=== PATIENT | male | born 1960 ===

== ENCOUNTER 2016-09-12 09:20 | Outpatient (CLI) | payer OTHER | END 2016-09-12 09:21 | LOC: NAVSJIPCSP 09:20 | PROVIDERS: ATTEND Internal Medicine | DX: E78.5 Hyperlipidemia, unspecified (principal) | CPT/HCPCS: 36415; 80061 ==

== ENCOUNTER 2017-01-16 09:10 | Outpatient (CLI) | payer OTHER ==
[2017-01-16 12:35] LABS: Cardiac Risk 2.1 (Less than 4.5)
== END 2017-01-16 09:11 | disposition home or self-care (01) ==
LOC: NAVSJIPCSP 09:10
PROVIDERS: ATTEND Internal Medicine
DX: E78.5 Hyperlipidemia, unspecified (principal)
CPT/HCPCS: 36415; 80061